=== PATIENT | female | born 1950 | race Caucasian/White ===

== ENCOUNTER 2022-10-10 13:44 | Emergency (ER) | payer MEDICARE ==
[2022-10-10] MEDS ORDERED: diphenhydrAMINE/Zinc Acetate 2% Crm 28.4 GM Tube TOP PRN (14:33)
== END 2022-10-10 14:50 | disposition home or self-care (01) ==
LOC: JP.ED 13:44
DX: L23.1 Allergic contact dermatitis due to adhesives (principal); I10 Essential (primary) hypertension; E03.9 Hypothyroidism, unspecified; Z79.899 Other long term (current) drug therapy; Z90.49 Acquired absence of other specified parts of digestive tract
CPT/HCPCS: 99283

== ENCOUNTER 2023-12-28 08:26 | Day surgery (SDC) | payer MEDICARE ==
[~2023-12-28 08:26] MED LIST: Midazolam 1 MG/ML 2 ML SDV ONE; Propofol 200 MG/20 ML SDV ONE; fentaNYL 100 MCG/2 ML SDV ONE
[2023-12-28] MEDS: ceFAZolin 2 GM in Premix Bag 1 BAG IV ONE (10:17)
[2023-12-28] MEDS: Bupivacaine 0.5% 50 ML MDV ONE (10:43)
[2023-12-28] MEDS: Lidocaine 1% with EPINEPHrine 1:100,000 50 ML MDV ONE (10:43)
[2023-12-28] MEDS: Sodium Chloride 0.9% 1,000 ML IV SCH (12:36)
== END 2023-12-28 12:28 | disposition home or self-care (01) ==
LOC: JP.SDS 08:26
PROVIDERS: ATTEND Surgery
DX: C44.722 Squamous cell carcinoma of skin of right lower limb, including hip (principal); I10 Essential (primary) hypertension; L03.115 Cellulitis of right lower limb
CPT/HCPCS: 00400; 11606; J0665; J0690; J2250; J2704; J3010; J7030